=== PATIENT | female | born 1995 | race Caucasian/White ===

== ENCOUNTER 2021-05-17 16:29 | Emergency (ER) | payer MEDICAID ==
[~2021-05-17] VITALS: Ht 165.1 cm; Wt 63.6 kg
[2021-05-17 16:51] VITALS: BP 117/75
[2021-05-17 17:28] LABS: COVID AG,FIA SOURCE NASOPHARYNGEAL
== END 2021-05-17 18:46 | disposition home or self-care (01) ==
LOC: EMS 16:29
DX: Z20.822 Contact with and (suspected) exposure to COVID-19 (principal)
CPT/HCPCS: 87426; 99283; U0003